=== PATIENT | male | born 1960 | race Caucasian/White ===

== ENCOUNTER 2024-01-28 13:29 | Emergency (ER) | payer OTHER, SELFPAY ==
[2024-01-28 13:30] VITALS: BP 172/107; PULSE 134; RESP 16; TEMP 36.6; O2SAT 98
--- NOTE | 2024-01-28 14:16 | ED.GENADUL_ITS ---
Discharge Plan Disposition Patient Disposition: Home Condition: Stable Discharge Details Clinical Impression: Acute urinary retention Primary Care Provider: Asya Trejo ED Provider: Asya Trejo Home Meds and New Rx's Prescriptions: No Action omeprazole 10 mg capsule,delayed release(DR/EC) 10 mg PO DAILY Discharge Instructions Instructions: How to Care for Your Nascimento Catheter, Urinary Retention (DC) Additional Instructions: You were seen in the emergency department today for evaluation of urinary retention. In our department you had a full physical examination performed, had laboratory studies that were reassuring, and had a Nascimento catheter placed to drain your bladder. This will stay in place until you can follow-up with your urologist, which should happen in the next few days to 1 week. I provided you with care instructions for your Nascimento catheter, please continue to maintain good hydration and nutrition. Thank you for allowing us to be part of your care. Referrals: Idris Malcolm MD [ [facility] STAFF PHYSICIAN] - 3 days HPI General Mode of arrival: ambulatory . Date/Time Provider Initiated Documentation: 01/28/24 13:33 . Limitations to Documentation: no limitations . Information obtained by: patient . HPI Narrative: MDM: In brief, this is a 63-year-old male patient presenting for evaluation of acute urinary retention. My differential includes but is not limited to BPH, urinary tract infection, patient's symptoms are less consistent with renal stone. Certainly considered kidney injury, metabolic and electrolyte derangements. I considered toxic exposure and withdrawal syndromes, patient does not have any significant risk factors or exposures for anticholinergic toxicity. The patient endorses normal bowel movements making constipation less likely contributor. Overall, the patient appears uncomfortable and tachycardic but is otherwise afebrile with an adequate blood pressure. Bladder scan reveals greater than 300 cc in his bladder and his bladder is palpable in the suprapubic region. We will obtain basic laboratory studies to include CBC, CMP, magnesium, placed a Nascimento and obtain a UA. ED Course: I independently interpreted the laboratory studies, which show no significant leukocytosis, anemia, or thrombocytopenia. The chemistry panel is without evidence of electrolyte abnormality, kidney dysfunction, or liver injury. Urinalysis is without evidence of urinary tract infection. The Nascimento catheter was placed and drained 1000 mL of eitan urine, with complete resolution of the patient's symptoms. Tachycardia improved from initial vitals. We informed the patient of the importance of proper Nascimento care and he was educated on same, he will follow-up with the urology clinic in the next few days to discuss this visit and any symptoms that change, worsen, or persist. Nascimento catheter will remain in place until such time as he can be evaluated by a urologist. At this time, the patient has had a full medical evaluation and is safe for discharge to home. They are hemodynamically stable, ambulatory, and tolerating PO. They are understanding of the follow-up plan and return precautions. They left our facility without incident. Asya Trejo MD HPI: This is a 63-year-old male patient with a past medical history significant for GERD, presenting for evaluation of urinary retention. The patient reports that over the last few days he had noticed that he only urinates dribbles, states that he typically gets up to pee 1 or 2 times per night, but last night noticed that he was not passing much urine at all. This morning he tried to drink lots of coffee and water with turmeric and sourav and it but has not felt like he has passed any of that liquid that he consumed. The patient reports that he had an episode of urinary retention in the setting of a hospitalization, which required indwelling Nascimento placement. He does not believe he has ever been formally diagnosed with BPH. He reports that he has not noted any dysuria or hematuria, has not had flank pain, has not had fevers or chills. Last bowel movement was last night. The patient recently moved to the area from [place], has not received any medical care here yet. He does not take Flomax. The patient reports that he drinks alcohol a few times a week, does not use nicotine or tobacco, uses THC Gummies. No other supplements, exposure to forged foods, etc. Exam: Gen: Awake and alert, appears uncomfortable and unable to sit, moving around and dancing in a standing position throughout this provider's examination HEENT: Non-icteric sclera, pupils equal and reactive at 4 mm bilaterally Neck: Supple Lungs: No apparent respiratory distress, normal respiratory effort. CV: Appears well perfused Abdomen: Suprapubic fullness appreciated, firm and tender to palpation over this region, the remainder of the abdomen is soft, without tenderness, rigidity, or rebound. MSK: Moves 4 extremities without apparent limitation in ROM, no CVA tenderness. Skin: Visualized skin without rashes, cyanosis. 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 Speaks in full, clear sentences. Psych: Appropriate for situation. Related Data Home Medications ?Medication ?Instructions ?Recorded ?Confirmed omeprazole 10 mg capsule,delayed 10 mg PO DAILY 01/28/24 01/28/24 release Allergies Allergy/AdvReac Type Severity Reaction Status Date / Time No Known Allergies Allergy Unverified 01/28/24 13:36 General Stated Complaint: Urinary JULIO CESAR: 3 Course Vital Signs Vital signs: Vital Signs Temperature 36.6 C 01/28/24 13:30 Pulse 134 H 01/28/24 13:30 Respiratory Rate 16 01/28/24 13:30 Blood Pressure 172/107 H 01/28/24 13:30 Pulse Oximetry 98 01/28/24 13:30 Temperature 36.6 C 01/28/24 13:30 Temperature Source Temporal Artery Scan 01/28/24 13:30 Pulse 134 H 01/28/24 13:30 Respiratory Rate 16 01/28/24 13:30 Respiratory Effort Normal 01/28/24 13:36 Blood Pressure 172/107 H 01/28/24 13:30 Pulse Oximetry 98 01/28/24 13:30 Oxygen Delivery Method Room Air 01/28/24 13:30 Oxygen Flow Rate 0 01/28/24 13:30 Pain Level 3 01/28/24 13:30 Medical Decision Making Quality:SDOH Health Related Social Needs: No Data to Display PFSH All Active Problems (Updated 01/28/24 @ 15:50 by Asya Trejo MD) Acute urinary retention (Acute) Social History Smoking risk assessment performed?: No
[2024-01-28 14:20] LABS: Bilirubin Negative (Negative); Blood Negative (Negative); Clarity Clear (Clear); Glucose 250 mg/dL (Negative); Ketones Negative (Negative); Leukocyte Esterase Negative (Negative); Nitrite Negative (Negative); Specific Gravity >= 1.030 (1.005-1.025); Urobilinogen 0.2 mg/dL (Up to 0.2); pH 5.5 (5-8)
[2024-01-28 14:26] LABS: Bacteria Negative HPF (Negative); C & S Indicated? No; Casts 0-2 Hyaline LPF (Negative); Crystals Negative HPF (Negative); Epithelial Cells Rare HPF (Negative); Mucus Negative (Negative); RBC Negative HPF (0-2); WBC 0-2 HPF (0-5)
[2024-01-28 15:21] LABS: Abs Immature Grans 0.02 10^3/uL (0.0-0.06); Absolute Basophil Count 0.02 10^3/uL (0.0-0.2); Absolute Lymphocyte Count 0.75 10^3/uL (1.2-3.4); Absolute Monocyte Count 0.39 10^3/uL (0.1-0.8); Absolute Neutrophil Count 7.39 10^3/uL (1.2-6.7); Basophils % 0.2 %; HCT 51.5 % (40.0-50.0); HGB 17.5 g/dL (13.5-17.5); Immature Grans % 0.2 %; Lymphocytes % 8.8 %; MCH 30.2 pg (27.0-33.0); MCV 89 fL (80-95); MPV 8.6 fL (8.0-11.0); Monocytes % 4.6 %; Neutrophils % 86.2 %; Platelet Count 261 10^3/uL (130-400); RDW 12.7 % (11.8-14.1); RDW-SD 41.7 fL; WBC 8.57 10^3/uL (4.4-10.8)
[2024-01-28 15:37] LABS: ALT 38 U/L (16-63); AST 24 U/L (15-37); Albumin 4.7 g/dL (3.4-5.0); Alkaline Phosphatase 76 U/L (46-116); Anion Gap 11.2 mmol/L (3-11); BUN 17 mg/dL (7-18); Bilirubin, Total 0.49 mg/dL (0.2-1.0); CO2 25.8 mmol/L (21.0-32.0); CREATININE 0.9 mg/dL (0.70-1.30); Calcium 10.3 mg/dL (8.5-10.1); Chloride 102 mmol/L (98-107); Estimated GFR 97.17 (mL/min/1.73m2); Glucose 114 mg/dL (74-106); Potassium 4.4 mmol/L (3.5-5.1); Sodium 139 mmol/L (136-145); Total Protein 8.4 g/dL (6.4-8.2)
--- NOTE | 2024-01-28 16:17 | NUR.NOTE ---
Referral faxed to Urology for follow up to Urinary Retentation within a week.
== END 2024-01-28 15:56 | disposition home or self-care (01) ==
PROVIDERS: Emergency Provider Emergency Medicine; PCP Emergency Medicine
DX: R33.9 Retention of urine, unspecified (principal); R39.15 Urgency of urination
CPT/HCPCS: 36415; 51702; 80053; 99283; 81003; 81015; 83735; 85025